=== PATIENT | female | born 1960 | race Caucasian/White ===

== ENCOUNTER 2018-08-30 18:20 | Emergency (ER) | payer OTHER ==
[2018-08-30] MEDS ORDERED: Sodium Chloride 0.9% 2.5 ML Syringe FLUSH PRN (18:21)
[2018-08-30] MEDS ORDERED: Sodium Chloride 0.9% 10 ML Syringe FLUSH PRN (18:21)
[2018-08-30] MEDS ORDERED: Sodium Chloride 0.9% 10 ML SDV IV PRN (18:21)
--- NOTE | 2018-08-30 18:23 | EDM.PDOC ---
ED HPI GENERAL MEDICAL PROBLEM - General Chief Complaint: Neuro Symptoms/Deficits Stated Complaint: STROKE Time Seen by Provider: 08/30/18 18:23 Source of Information: Reports: Patient History Limitations: Reports: No Limitations - History of Present Illness INITIAL COMMENTS - FREE TEXT/NARRATIVE: HISTORY AND PHYSICAL: History of present illness: Patient is a 58-year-old female presents to the ED for complaint of feeling weak. Stroke code was called. Patient states that she was at work and suddenly felt like her whole body was weak and her legs felt like rubber around 4:30pm. She states when she talked her coworker could not understand her. She went home and felt better for a short time before getting worse which prompted her to come to the ED. Upon arrival patient states that she is feeling better again. She reports her whole body still feels a little weak. Her daughter states that her speech does sound slightly slurred although I did not pickers material handlers on this. She denies headache, fevers, chills, nausea, vomiting, abdominal pain, visual changes. She does mention that she has been having muscle cramping lately and her mouth is really. 1845 I was called in to the room as the patient started not feeling well again. There were no neuro deficits on my exam and she was speaking clearly in full sentences. Patient reports drinking 8 alcoholic drinks per day. She states she has never had withdrawals because she never lets it get to that point. Review of systems: As per history of present illness and below otherwise all systems reviewed and negative. Past medical history: As per history of present illness and as reviewed below otherwise noncontributory. Surgical history: As per history of present illness and as reviewed below otherwise noncontributory. Social history: No reported history of drug or alcohol abuse. Family history: As per history of present illness and as reviewed below otherwise noncontributory. Physical exam: General: Patient sitting comfortably in no acute distress and nontoxic appearing HEENT: Atraumatic, normocephalic, pupils reactive, negative for conjunctival pallor or scleral icterus, mucous membranes moist, throat clear, neck supple, nontender, trachea midline. No meningeal signs. Lungs: Clear to auscultation, breath sounds equal bilaterally, chest nontender. Heart: S1S2, regular, negative for clicks, rubs, or overt murmur. Abdomen: Soft, nondistended, nontender. Negative for masses or hepatosplenomegaly. Negative for costovertebral tenderness. No rigidity, rebound , guarding. Pelvis: Stable nontender. Genitourinary: Deferred. Rectal: Deferred. Extremities: Atraumatic, negative for cords or calf pain. Neurovascular unremarkable. Neuro: Awake, alert, oriented. Cranial nerves II through XII unremarkable. Cerebellum unremarkable. Motor and sensory unremarkable throughout. Exam nonfocal. Notes: Discussed with patient staying for TIA work up. Patient declined and understands my concern and risks. Diagnostics: Head CT CBC, CMP, TSH, PT/INR, PTT Orthostatic vital signs Therapeutics: None Prescriptions: None Impression: Subjective weakness Plan: 1. Follow up with primary care provider 2. Return to ED as needed as discussed Definitive disposition and diagnosis as appropriate pending reevaluation and review of above. - Related Data Allergies Allergy/AdvReac Type Severity Reaction Status Date / Time No Known Allergies Allergy Verified 08/30/18 18:29 Home Meds: Home Meds Aspirin [Adult Low Dose Aspirin EC] 81 mg PO DAILY 08/30/18 [History] Lisinopril/Hydrochlorothiazide [Lisinopril-Hctz 20-25 mg Tab] 1 tab PO DAILY 12/09 [History] ED ROS GENERAL - Review of Systems Review Of Systems: ROS reveals no pertinent complaints other than HPI. ED EXAM, NEURO - Physical Exam Exam: See Below (see dictation) Course - Vital Signs Last Recorded V/S: Last Vital Signs Temp 96.3 F 08/30/18 18:31 Pulse 62 08/30/18 18:31 Resp 20 08/30/18 18:31 BP 129/87 08/30/18 18:31 Pulse Ox 98 08/30/18 18:31 Orthostatic Blood Pressure [] 106/75 Orthostatic Blood Pressure [] 113/75 Orthostatic Blood Pressure [] 110/71 - Orders/Labs/Meds Orders: Active Orders 24 hr Category Date Time Status Assess Neurological Status [RC] ASDIRECTED Care 08/30/18 18:21 Active Bedrest [RC] ASDIRECTED Care 08/30/18 18:21 Active Cardiac Monitoring [RC] . DIRECTED Care 08/30/18 18:21 Active EKG Documentation Completion [RC] STAT Care 08/30/18 18:21 Active Height and Weight [RC] UPON Care 08/30/18 18:21 Active Initiate Acute Stroke Protocol [RC] STAT Care 08/30/18 18:21 Active NIH Stroke Scale [RC] ASDIRECTED Care 08/30/18 18:21 Active Nursing Bedside Swallow Screen [RC] ASDIRECTED Care 08/30/18 18:21 Active Orthostatic Vital Signs [RC] ASDIRECTED Care 08/30/18 19:06 Ordered Oxygen Therapy [RC] ASDIRECTED Care 08/30/18 18:21 Active Stroke Education, General [RC] Click to Edit Care 08/30/18 18:21 Active Vital Signs [RC] Q15M Care 08/30/18 18:21 Active Sodium Chloride 0.9% [Normal Saline] Med 08/30/18 18:21 Active 10 ml IV ASDIRECTED PRN Sodium Chloride 0.9% [Saline Flush] Med 08/30/18 18:21 Active 10 ml FLUSH ASDIRECTED PRN Sodium Chloride 0.9% [Saline Flush] Med 08/30/18 18:21 Active 2.5 ml FLUSH ASDIRECTED PRN Peripheral IV Insertion Adult [OM.PC] Stat Oth 08/30/18 18:21 Ordered Peripheral IV Insertion Adult [OM.PC] Stat Oth 08/30/18 18:21 Ordered Medication Orders Sodium Chloride (Saline Flush) 10 ml FLUSH ASDIRECTED PRN PRN Reason: Keep Vein Open Sodium Chloride (Saline Flush) 2.5 ml FLUSH ASDIRECTED PRN PRN Reason: Keep Vein Open Sodium Chloride (Normal Saline) 10 ml IV ASDIRECTED PRN PRN Reason: IV Use Labs: Laboratory Tests 08/30/18 08/30/18 08/30/18 Range/Units 18:15 18:15 18:15 WBC 9.53 (4.0-11.0) K/uL RBC 4.14 L (4.30-5.90) M/uL Hgb 14.1 (12.0-16.0) g/dL Hct 40.5 (36.0-46.0) % MCV 97.8 (80.0-98.0) fL MCH 34.1 H (27.0-32.0) pg MCHC 34.8 (31.0-37.0) g/dL RDW Std Deviation 44.9 (28.0-62.0) fl RDW Coeff of Divya 13 (11.0-15.0) % Plt Count 203 (150-400) K/uL MPV 10.30 (7.40-12.00) fL Neut % (Auto) 64.4 (48.0-80.0) % Lymph % (Auto) 24.6 (16.0-40.0) % [place] % (Auto) 9.0 (0.0-15.0) % Eos % (Auto) 1.6 (0.0-7.0) % Baso % (Auto) 0.4 (0.0-1.5) % Neut # (Auto) 6.1 H (1.4-5.7) K/uL Lymph # (Auto) 2.3 (0.6-2.4) K/uL [place] # (Auto) 0.9 H (0.0-0.8) K/uL Eos # (Auto) 0.2 (0.0-0.7) K/uL Baso # (Auto) 0.0 (0.0-0.1) K/uL Nucleated RBC % 0.0 /100WBC Nucleated RBCs # 0 K/uL INR 1.03 APTT 25.0 (18.6-31.3) SEC Sodium 134 L (136-145) mmol/L Potassium 4.1 (3.5-5.1) mmol/L Chloride 100 (98-107) mmol/L Carbon Dioxide 27.4 (21.0-32.0) mmol/L BUN 19 H (7.0-18.0) mg/dL Creatinine 0.7 (0.6-1.0) mg/dL Est Cr Clr Drug Dosing TNP Estimated GFR (MDRD) > 60.0 ml/min Glucose 120 H (74-106) mg/dL Calcium 8.4 L (8.5-10.1) mg/dL Total Bilirubin 1.3 H (0.2-1.0) mg/dL AST 94 H (15-37) IU/L ALT 86 H (14-63) IU/L Alkaline Phosphatase 85 (46-116) U/L Troponin I < 0.050 (0.000-0.056) ng/mL Total Protein 6.8 (6.4-8.2) g/dL Albumin 3.4 (3.4-5.0) g/dL Globulin 3.4 (2.6-4.0) g/dL Albumin/Globulin Ratio 1.0 (0.9-1.6) TSH 3rd Generation 1.55 (0.36-3.74) uIU/mL Meds: Medications Generic Name Dose Route Start Last Admin Trade Name Freq PRN Reason Stop Dose Admin Sodium Chloride 10 ml 08/30/18 18:21 Saline Flush FLUSH ASDIRECTED PRN Keep Vein Open Sodium Chloride 2.5 ml 08/30/18 18:21 Saline Flush FLUSH ASDIRECTED PRN Keep Vein Open Sodium Chloride 10 ml 08/30/18 18:21 Normal Saline IV ASDIRECTED PRN IV Use Departure - Departure Time of Disposition: 19:52 Disposition: Home, Self-Care 01 Condition: Good Clinical Impression: Subjective weakness - Discharge Information Instructions: Weakness, [id number] Forms: ED Department Discharge Additional Instructions: The following information is given to patients seen in the emergency department who are being discharged to home. This information is to outline your options for follow-up care. We provide all patients seen in our emergency department with a follow-up referral. The need for follow-up, as well as the timing and circumstances, are variable depending upon the specifics of your emergency department visit. If you don't have a primary care physician on staff, we will provide you with a referral. We always advise you to contact your personal physician following an emergency department visit to inform them of the circumstance of the visit and for follow-up with them and/or the need for any referrals to a consulting specialist. The emergency department will also refer you to a specialist when appropriate. This referral assures that you have the opportunity for follow-up care with a specialist. All of these measure are taken in an effort to provide you with optimal care, which includes your follow-up. Under all circumstances we always encourage you to contact your private physician who remains a resource for coordinating your care. When calling for follow-up care, please make the office aware that this follow-up is from your recent emergency room visit. If for any reason you are refused follow-up, please contact the [facility] Emergency Department at and asked to speak to the emergency department charge nurse. [facility] [address] [place] [address] [facility] [address] [place] [id number] 1. Follow up with primary care provider 2. Return to ED as needed as discussed - My Orders Last 24 Hours: My Active Orders 08/30/18 18:21 Assess Neurological Status [RC] ASDIRECTED Bedrest [RC] ASDIRECTED Cardiac Monitoring [RC] . DIRECTED EKG Documentation Completion [RC] STAT Height and Weight [RC] UPON Initiate Acute Stroke Protocol [RC] STAT NIH Stroke Scale [RC] ASDIRECTED Nursing Bedside Swallow Screen [RC] ASDIRECTED Oxygen Therapy [RC] ASDIRECTED Stroke Education, General [RC] Click to Edit Vital Signs [RC] Q15M Sodium Chloride 0.9% [Normal Saline] 10 ml IV ASDIRECTED PRN Sodium Chloride 0.9% [Saline Flush] 10 ml FLUSH ASDIRECTED PRN Sodium Chloride 0.9% [Saline Flush] 2.5 ml FLUSH ASDIRECTED PRN Peripheral IV Insertion Adult [OM.PC] Stat Peripheral IV Insertion Adult [OM.PC] Stat 08/30/18 19:06 Orthostatic Vital Signs [RC] ASDIRECTED - Assessment/Plan Last 24 Hours: My Active Orders 08/30/18 18:21 Assess Neurological Status [RC] ASDIRECTED Bedrest [RC] ASDIRECTED Cardiac Monitoring [RC] . DIRECTED EKG Documentation Completion [RC] STAT Height and Weight [RC] UPON Initiate Acute Stroke Protocol [RC] STAT NIH Stroke Scale [RC] ASDIRECTED Nursing Bedside Swallow Screen [RC] ASDIRECTED Oxygen Therapy [RC] ASDIRECTED Stroke Education, General [RC] Click to Edit Vital Signs [RC] Q15M Sodium Chloride 0.9% [Normal Saline] 10 ml IV ASDIRECTED PRN Sodium Chloride 0.9% [Saline Flush] 10 ml FLUSH ASDIRECTED PRN Sodium Chloride 0.9% [Saline Flush] 2.5 ml FLUSH ASDIRECTED PRN Peripheral IV Insertion Adult [OM.PC] Stat Peripheral IV Insertion Adult [OM.PC] Stat 08/30/18 19:06 Orthostatic Vital Signs [RC] ASDIRECTED
[2018-08-30 18:53] LABS: CHLORIDE,CL 100 mmol/L (98-107); SODIUM,NA 134 mmol/L (136-145)
--- NOTE | 2018-08-30 19:01 | CT ---
INDICATION: STROKE CODE CT HEAD WITHOUT CONTRAST TECHNIQUE: Multiple axial CT images were performed through the head without intravenous contrast administration. COMPARISON: No previous studies are currently available for comparison. FINDINGS: No acute intracranial hemorrhage is identified. No extra-axial collections are evident and there is no mass effect or midline shift. Ventricles are normal in size and configuration. Brain parenchyma appears normal with unremarkable alston-white differentiation. Osseous structures are within normal limits and no fractures are seen. Included portions of the paranasal sinuses and mastoid air cells are normally aerated. IMPRESSION: Normal non-contrast head CT. Report called to Dr. Ingram at 6:47pm. MONTRELL SALINAS MD [employer] [employer] Dictated by: Matthieu Salinas MD @ 08/30/2018 19:00:47 (Electronically Signed)
--- NOTE | 2018-08-30 19:07 | CR ---
INDICATION: Code stroke COMPARISON: None available. FINDINGS: An erect single view of the chest was obtained at 1825 hours. The lungs are clear. No focal or diffuse infiltrates are present. The heart is normal in size. There is mild tortuosity of the descending thoracic aorta. The mediastinum is otherwise normal in appearance. The osseous structures are normal in appearance for the patient`s age. IMPRESSION: No active disease seen in the chest. Dictated by Javier Sruesh MD @ Aug 30 2018 7:05PM Signed by Dr. Javier Suresh @ Aug 30 2018 7:06PM
== END 2018-08-30 20:08 | disposition home or self-care (01) ==
LOC: MW.ED 18:20
DX: R53.1 Weakness (principal)
CPT/HCPCS: 36415; 70450; 70450-26; 71045; 71045-26; 80053; 84443; 84484; 85025; 85610; 85730; 93005; 99285-25

== ENCOUNTER → 2019-07-19 | Day surgery (SDC) | payer OTHER ==
--- NOTE | 2019-07-19 16:45 | OR ---
SURGEON: Susanne Johnson D.O. DATE OF PROCEDURE: 07/19/2019 PREOPERATIVE DIAGNOSES: 1. Lumbar degenerative disk disease, L4-5 and L5-S1. 2. Left L5-S1 radiculopathy. 3. L5 on S1 anterolisthesis. 4. Chronic low back pain. POSTOPERATIVE DIAGNOSES: 1. Lumbar degenerative disk disease, L4-5 and L5-S1. 2. Left L5-S1 radiculopathy. 3. L5 on S1 anterolisthesis. 4. Chronic low back pain. PROCEDURES PERFORMED: 1. Left transforaminal epidural steroid injection at S1. 2. Fluoroscopic guidance for needle placement. 3. Local with oral Valium for sedation. OR STAFF PRESENT: 1. Suzanne Menard RN. 2. Estela Medellin RN. 3. RT Manuel. WOUND CLASS: I. SCREENING QUESTIONS: The patient answered "no" to all of the following questions: 1. Are you allergic to iodine, Betadine or latex? 2. Do you have a bleeding disorder? 3. Do you have any joint replacements, heart valve replacements, or a pacemaker? 4. Are you allergic to anti-inflammatories or blood thinners? 5. Do you have any current local or systemic infections? MEDICAL NECESSITY: This is a patient with a history of chronic low back pain and lower extremity radicular pain in the above dermatomal pattern that comes in for the above diagnostic and therapeutic procedure. Pertinent positives and negatives for this suspected disease process along with the diagnostic findings and testing are in the patient's history and physical exam. The most salient feature includes radicular pain in the above dermatomal pattern. The patient had failed attempts at conservative therapy including physical therapy, nonsteroidal anti- inflammatory drugs, and other medications. No contraindications to perform this procedure including medical, no bleeding disorders or infections, no psychological, no antisocial personality disorder or active addiction disorder. There are no work-related issues, and, in general, the patient does not have any history of multiple prior interventions, surgeries or nerve blocks which have failed to return the patient to function. The patient's other symptoms to be treated include numbness, paresthesia, dysesthesia or hypoesthesia referred into the left lower extremity or any weakness in the involved myotome. This procedure is being performed in accordance with national guidelines as written by the International Sp[employer] Intervention Society (TARAN). DESCRIPTION OF PROCEDURE: The patient had the procedure thoroughly explained including risks, benefits and alternatives. Consent was signed in my clinic indicating understanding and willingness to proceed. The patient presented to [facility] where the patient was escorted to the dressing room to disrobe and change into a hospital gown. Preoperative vital signs were taken and stable. The patient reported that Valium was taken prior to the procedure. The patient was brought to the procedure room and placed in the prone position on the table. A pillow was placed under the abdomen in order to flatten the lumbar lordosis. The back was prepped with ChloraPrep and sterilely draped. All personnel in the operating room were dressed in appropriate attire including surgical scrubs, head and shoe covers. This was to ensure sterility while in the treatment room. During the time fluoroscopy was in use, all personnel in the operating room wore lead leahy with thyroid collars. Sterile technique was used during the procedure. The fluoroscope was placed for the left transforaminal epidural steroid injection. There was no sign of infection at the skin site for needle insertion. The skin was anesthetized with 2% lidocaine with a 27 gauge 1-1/2 inch needle. Then, a 22 gauge 3-1/2 inch spinal needle, advanced to the S1. Under direct fluoroscopic guidance needle position was verified in three views; AP, oblique and lateral, with 0.2 cubic centimeters increments of Isovue-200 dye. No intravascular flow pattern was observed under live fluoroscopy. Then 12 milligrams of Celestone was slowly injected after negative aspiration of heme, cerebrospinal fluid and no paresthesias were noted. The needle was cleared prior to removal from the skin. No adverse reactions were noted. The patient was brought to the recovery room awake and in good condition by my staff. The patient was monitored and discharge instructions were given after a brief stay in the recovery area. Both oral and written discharge and follow up instructions were given. The patient will follow up in the clinic in 3-4 weeks post procedure to evaluate the efficacy. The patient verbalized understanding including understanding of those signs and symptoms that would require emergency care and knows how to contact the office if there are any problems or questions in the meantime. PREOPERATIVE PAIN: 6/10. POSTOPERATIVE PAIN: 10. FOLLOWUP: In the Pain Clinic in 3 weeks. HOGLCHR / MODL /[id number]
--- NOTE | 2019-08-01 12:55 | CR ---
EXAM DATE: 07/19/19 PATIENT'S AGE: 59 REPORT ADDENDUM Addendum: Spondylolisthesis on plain film study measured 1.1 cm. On MRI this measures 6.5 mm. Difficult to compare between the 2 different modalities due to magnification occurring on the plain film exam. Visually the spondylolisthesis appears to be slightly increased. Some of this spondylolytic change may also relate to current plain film study being upright whereas MRI is performed in supine projection. --- Addendum1 above dictated on [07/19/2019 12:47] by [Irena Vaughn, Jermaine Palacios] --- --- Addendum1 above signed on [07/19/2019 12:49] by [Irena Vaughn, Jermaine Palacios] -- - --- Original report below dictated on [07/19/2019 09:09] by [Irena Vaughn, Jermaine Palacios] --- --- Original report below signed on [07/19/2019 09:11] by [Irena Vaughn, Jermaine Palacios] --- Addendum Dictated by: Jermaine Vaughn MD 07/30/19 1036 EAJ , 1247 , 1035 EXAM DATE: 07/19/19 PATIENT'S AGE: 59 Lumbar spine: AP, lateral and coned-down lateral view centered to the lumbosacral junction were obtained. Comparison: Prior MRI lumbar spine study of 05/17/19. Moderate disc space narrowing noted at L4-L5. This is due to degenerative apophyseal change. Spondylolisthesis measures approximately 1.1 cm. Mild posterior disc space narrowing noted at L2-3 and L3-L4. Mild diffuse disc space narrowing noted at T11-T12. Minimal scattered endplate osteophytes are noted. Pedicles as well as transverse and spinous processes are intact. Sacroiliac joints appear within normal limits. Impression: 1. Degenerative change at L4-L5 as described above. 2. Lesser degenerative change at other levels as noted above. Diagnostic code #2 This report was dictated in MDT Report Signed by Proxy. [facility] MEDICAL CENTERJovany
== END | disposition home or self-care (01) ==
LOC: MW.SDS 12:00
PROVIDERS: ATTEND Anesthesiology
DX: M54.16 Radiculopathy, lumbar region (principal)
CPT/HCPCS: 62322; 72110; 72110-26

== ENCOUNTER 2021-09-14 15:09 | Emergency (ER) | payer OTHER ==
[2021-09-14] MEDS ORDERED: Sodium Chloride 0.9% 2.5 ML Syringe FLUSH PRN (15:12)
[2021-09-14] MEDS ORDERED: Sodium Chloride 0.9% 10 ML Syringe FLUSH PRN (15:12)
[2021-09-14] MEDS ORDERED: Ondansetron 4 MG/2 ML SDV IVPUSH ONE (16:08)
[2021-09-14] MEDS ORDERED: Morphine 4 MG/ML VIAL IVPUSH ONE (16:08)
[2021-09-14] MEDS ORDERED: Sodium Chloride 0.9% 1,000 ML IV ONE ×3 (16:08→18:46)
[2021-09-14 17:04] LABS: POTASSIUM,K 3.2 mmol/L (3.5-5.1)
[2021-09-14] MEDS ORDERED: Iopamidol 755 MG/ML 500 ML Multipack Bottle IVPUSH STA (17:12)
[2021-09-14] MEDS ORDERED: metroNIDAZOLE/Normal Saline 500 MG in Premix Bag 1 BAG IV ONE (18:41)
[2021-09-14] MEDS ORDERED: Ciprofloxacin in D5W 400 MG in Premix Bag 1 BAG IV SCH ×2 (18:45)
== END 2021-09-14 21:51 | disposition left against medical advice (07) ==
LOC: MW.ED 15:09
DX: K52.9 Noninfective gastroenteritis and colitis, unspecified (principal); E86.0 Dehydration; I10 Essential (primary) hypertension; Z79.82 Long term (current) use of aspirin; Z79.899 Other long term (current) drug therapy; Z20.822 Contact with and (suspected) exposure to COVID-19; Z53.8 Procedure and treatment not carried out for other reasons
CPT/HCPCS: 36415; 74177; 80053; 81001; 83690; 85025; 87086; 87635; 96361; 96365; 96367; 96375; 99285; J0744; J2270; J2405; J3490; J7030; Q9967; 99284; U0002

== ENCOUNTER 2021-09-15 21:51 | Emergency (ER) | payer OTHER ==
[2021-09-15] MEDS ORDERED: HYDROmorphone 1 MG/ML Syringe IVPUSH ONE (23:23)
[2021-09-15] MEDS ORDERED: Sodium Chloride 0.9% 1,000 ML IV ONE (23:23)
[2021-09-15] MEDS ORDERED: Metoclopramide 10 MG/2 ML SDV IVPUSH ONE (23:24)
[2021-09-16 00:16] LABS: CARBON DIOXIDE,CO2 26.9 mmol/L (21.0-32.0); POTASSIUM,K 3.1 mmol/L (3.5-5.1)
== END 2021-09-16 01:09 | disposition home or self-care (01) ==
LOC: MW.ED 21:51
DX: K52.9 Noninfective gastroenteritis and colitis, unspecified (principal); I10 Essential (primary) hypertension; Z91.09 Other allergy status, other than to drugs and biological substances; Z79.82 Long term (current) use of aspirin; Z79.899 Other long term (current) drug therapy
CPT/HCPCS: 36415; 80053; 85025; 96361; 96374; 96375; 99284; J1170; J2765; J7030; 99283

== ENCOUNTER 2022-01-04 09:16 | Emergency (ER) | payer OTHER ==
[2022-01-04] MEDS ORDERED: Ondansetron 4 MG/2 ML SDV IVPUSH ONE (09:20)
[2022-01-04] MEDS ORDERED: Sodium Chloride 0.9% 1,000 ML IV ONE (09:22)
[2022-01-04] MEDS ORDERED: Pantoprazole 80 MG in Sodium Chloride 0.9% 10 ML IVPUSH ONE (09:28)
[2022-01-04 10:22] LABS: CORONAVIRUS COVID-19 NAA NEGATIVE (NEGATIVE); INFLUENZA A NAA NEGATIVE (NEGATIVE); INFLUENZA B NAA NEGATIVE (NEGATIVE); RESPIRATORY SYNCYTIAL VIR NAA NEGATIVE (NEGATIVE)
[2022-01-04 10:23] LABS: CARBON DIOXIDE,CO2 26.3 mmol/L (21.0-32.0); POTASSIUM,K 3.2 mmol/L (3.5-5.1)
[2022-01-04] MEDS ORDERED: LORazepam 2 MG/ML SDV IVPUSH ONE (11:13)
[2022-01-04] MEDS ORDERED: Metoclopramide 10 MG/2 ML SDV IVPUSH ONE (11:13)
== END 2022-01-04 12:14 | disposition home or self-care (01) ==
LOC: MW.ED 09:16
DX: K29.00 Acute gastritis without bleeding (principal); K92.0 Hematemesis; I10 Essential (primary) hypertension; R00.0 Tachycardia, unspecified; Z91.048 Other nonmedicinal substance allergy status; Z20.822 Contact with and (suspected) exposure to COVID-19
CPT/HCPCS: 0241U; 36415; 71045; 80053; 80307; 83690; 85025; 85610; 85730; 86850; 86900; 86901; 93005; 96361; 96374; 96375; 99285; C9113; J2060; J2405; J2765; J3490; J7030